=== PATIENT | male | born 1990 | race Two or more races ===

== ENCOUNTER 2017-11-26 06:06 | Emergency (ER) | payer SELFPAY ==
[~2017-11-26] VITALS: Ht 170.2 cm; Wt 68.0 kg
[~2017-11-26 06:06] MED LIST: [UNRECOGNIZED DRUG - OTHER]
[2017-11-26 09:03] LABS: BASOPHILS % 0.4 % (0.0-2.0); EOSINOPHILS % 0.6 % (0.0-5.0); HEMATOCRIT. 38.3 % (42.0-52.0); HEMOGLOBIN. 13.1 g/dL (14.0-18.0); LYMPHOCYTES % 12.8 % (20.0-50.0); MEAN CORPUSCULAR HEMOGLOBIN 30.4 pg (28.0-32.0); MEAN CORPUSCULAR VOLUME 89.4 fL (80.0-94.0); MEAN PLATELET VOLUME 7.7 fl (7.4-10.4); MONOCYTES % 5.9 % (2.0-8.0); NEUTROPHILS % 80.3 % (40.0-76.0); PLATELET 343 x1000/uL (130-400); RED BLOOD CELL COUNT 4.29 mill/uL (4.7-6.1); RED CELL DISTRIBUTION WIDTH 14.4 % (11.6-14.6)
[2017-11-26 09:07] LABS: CHLORIDE 106 mEq/L (98-107)
[2017-11-26 09:12] LABS: ETHANOL BLOOD < 10 mg/dL
[2017-11-26 09:21] LABS: KETONES URINE NEGATIVE (NEGATIVE); LEUKOCYTE ESTERASE URINE NEGATIVE (NEGATIVE); NITRITE URINE NEGATIVE (NEGATIVE); OCCULT BLOOD URINE NEGATIVE (NEGATIVE); PH URINE 7.5 (4.5-8.0); PROTEIN URINE TRACE (NEGATIVE); SPECIFIC GRAVITY URINE 1.018 (1.005-1.030)
[2017-11-26 09:31] LABS: CLARITY URINE CLEAR (CLEAR); COLOR URINE YELLOW (YELLOW)
[2017-11-26 09:39] LABS: CANNABINOID URINE SCREEN PRESUMTIVE POSITIVE (NEGATIVE); OPIATES URINE SCREEN NEGATIVE (NEGATIVE); PHENCYCLIDINE URINE SCREEN NEGATIVE (NEGATIVE)
[2017-11-26 09:40] LABS: *AMPHETAMINES SCREEN URINE PRESUMTIVE POSITIVE (NEGATIVE); *BARBITURATES SCREEN URINE NEGATIVE (NEGATIVE)
[2017-11-26 09:42] LABS: *BENZODIAZEPINES SCREEN URINE NEGATIVE (NEGATIVE); *COCAINE SCREEN URINE NEGATIVE (NEGATIVE); METHADONE URINE SCREEN NEGATIVE (NEGATIVE)
[2017-11-26] MEDS ORDERED: LORAZEPAM 2MG/ML CPJ IM ONE (10:15)
[2017-11-26 11:50] VITALS: BP 154/101
== END 2017-11-26 12:18 | disposition home or self-care (01) ==
LOC: ER 06:06
DX: F19.90 Other psychoactive substance use, unspecified, uncomplicated (principal); F17.200 Nicotine dependence, unspecified, uncomplicated; F12.10 Cannabis abuse, uncomplicated; Z79.899 Other long term (current) drug therapy
CPT/HCPCS: 36415; 80053; 80305; 80307; 80329; 81003; 85025; 99285; G0482; J2060; Z7610

== ENCOUNTER 2019-12-28 19:59 | Emergency (ER) | payer MEDICAID ==
[~2019-12-28] VITALS: Ht 172.7 cm; Wt 82.0 kg
[2019-12-28 20:08] VITALS: BP 148/103
== END 2019-12-28 20:30 | disposition left against medical advice (07) ==
LOC: ER 19:59
DX: Z53.21 Procedure and treatment not carried out due to patient leaving prior to being seen by health care provider (principal)

== ENCOUNTER 2021-06-27 23:26 | Inpatient (IN) | payer MEDICAID ==
[~2021-06-27] VITALS: Ht 170.2 cm; Wt 104.0 kg
[2021-06-27] MEDS ORDERED: LORAZEPAM 2MG/ML CPJ IV ONE (23:45)
[2021-06-27] MEDS ORDERED: ASPIRIN 325MG EC TABLET PO ONE (23:45)
[2021-06-27] MEDS ORDERED: SODIUM CHLORIDE 0.9% 1,000 ML IV ONE (23:45)
[2021-06-27] MEDS ORDERED: NITROGLYCERIN 0.4MG TABLET SL SL PRN (23:45)
[2021-06-28 00:18] LABS: BASOPHILS % 0.7 % (0.0-2.0); EOSINOPHILS % 2.9 % (0.0-5.0); HEMOGLOBIN. 14.6 g/dL (14.0-18.0); LYMPHOCYTES % 21.9 % (20.0-50.0); MEAN CORPUSCULAR HEMOGLOBIN 30.8 pg (28.0-32.0); MEAN CORPUSCULAR VOLUME 90.8 fL (80.0-94.0); MEAN PLATELET VOLUME 8.5 fl (7.4-10.4); MONOCYTES % 8.5 % (2.0-8.0); PLATELET 316 x1000/uL (130-400); RED BLOOD CELL COUNT 4.74 mill/uL (4.7-6.1)
[2021-06-28 00:24] LABS: CHLORIDE 106 mEq/L (98-107)
[2021-06-28 00:28] LABS: ETHANOL BLOOD 150 mg/dL
[2021-06-28 02:40] LABS: PARTIAL THROMBOPLASTIN TIME 26.2 sec (23.4-31.0); PROTHROMBIN TIME 10.8 sec (9.6-11.0)
[2021-06-28 12:32] LABS: *AMPHETAMINES SCREEN URINE PRESUMTIVE POSITIVE (NEGATIVE); CANNABINOID URINE SCREEN PRESUMTIVE POSITIVE (NEGATIVE); METHADONE URINE SCREEN NEGATIVE (NEGATIVE); OPIATES URINE SCREEN NEGATIVE (NEGATIVE); PHENCYCLIDINE URINE SCREEN NEGATIVE (NEGATIVE)
[2021-06-28 12:33] LABS: *BARBITURATES SCREEN URINE NEGATIVE (NEGATIVE); *BENZODIAZEPINES SCREEN URINE NEGATIVE (NEGATIVE); *COCAINE SCREEN URINE NEGATIVE (NEGATIVE)
[2021-06-28 16:00] VITALS: BP 139/98
[2021-06-28] MEDS ORDERED: CLONIDINE 0.1MG TABLET PO PRN (16:00)
[2021-06-28] MEDS ORDERED: ONDANSETRON HCL 4MG/2ML INJ IV PRN (16:00)
[2021-06-28] MEDS ORDERED: HYDROCODONE/ACETAMINOPHEN 5/325MG TABLET PO PRN (16:00)
[2021-06-28] MEDS ORDERED: MAGNESIUM/ALUMINUM HYDROXIDE/SIMETHICONE 30ML UDC PO PRN (16:00)
[2021-06-28] MEDS ORDERED: ACETAMINOPHEN 325MG TABLET PO PRN (16:00)
[2021-06-28 17:22] VITALS: BP 139/98
[2021-06-28 18:00] VITALS: BP 136/87
[2021-06-28 20:00] VITALS: BP 133/82
[2021-06-28] MEDS: ENOXAPARIN 30MG/0.3ML SYR SUBCUT SCH (20:48)
[2021-06-28] MEDS: CHLORDIAZEPOXIDE 25MG CAPSULE PO SCH (20:49)
[2021-06-28 22:00] VITALS: BP 130/77
[2021-06-29] VITALS: BP 130/77
[2021-06-29 02:00] VITALS: BP 130/77
[2021-06-29 04:00] VITALS: BP 145/80
[2021-06-29 06:27] LABS: CHLORIDE 103 mEq/L (98-107)
[2021-06-29] MEDS: CHLORDIAZEPOXIDE 25MG CAPSULE PO SCH ×2 (06:35→13:35)
[2021-06-29 06:38] LABS: LDL CHOLESTEROL 134 mg/dL (5-100); PHOSPHORUS 3.6 mg/dL (2.5-4.9)
[2021-06-29 06:39] LABS: T4 FREE 1.25 ng/dL (0.76-1.46)
[2021-06-29 06:40] LABS: HDL CHOLESTEROL 45 mg/dL (40-59)
[2021-06-29 06:53] LABS: BASOPHILS % 0.5 % (0.0-2.0); EOSINOPHILS % 3.5 % (0.0-5.0); HEMATOCRIT. 37.8 % (42.0-52.0); HEMOGLOBIN. 12.7 g/dL (14.0-18.0); LYMPHOCYTES % 21.4 % (20.0-50.0); MEAN CORPUSCULAR HEMOGLOBIN 30.9 pg (28.0-32.0); MEAN CORPUSCULAR VOLUME 91.7 fL (80.0-94.0); MEAN PLATELET VOLUME 8.9 fl (7.4-10.4); MONOCYTES % 7.4 % (2.0-8.0); NEUTROPHILS % 67.2 % (40.0-76.0); PLATELET 259 x1000/uL (130-400); RED BLOOD CELL COUNT 4.12 mill/uL (4.7-6.1); RED CELL DISTRIBUTION WIDTH 14.8 % (11.6-14.6)
[2021-06-29] MEDS ORDERED: OMEPRAZOLE 20MG CAPSULE EXTENDED RELEASE PO SCH (07:10)
[2021-06-29] MEDS: ENOXAPARIN 30MG/0.3ML SYR SUBCUT SCH (07:45)
[2021-06-29 08:00] VITALS: BP 136/84
[2021-06-29] MEDS ORDERED: MULTIVITAMINS,THER W-MINERALS TABLET PO SCH (09:00)
[2021-06-29] MEDS ORDERED: FOLIC ACID 1MG TABLET PO SCH (09:00)
[2021-06-29 12:00] VITALS: BP 139/91
[2021-06-29 16:00] VITALS: BP 146/84
== END 2021-06-29 19:44 | disposition home or self-care (01) | DRG 816 ==
LOC: ER 23:26 → 8WST 06-28 02:20 → ENRESERV 06-28 14:05
PROVIDERS: ADMIT Internal Medicine; ATTEND Internal Medicine
DX: T40.1X1A Poisoning by heroin, accidental (unintentional), initial encounter (principal); F10.129 Alcohol abuse with intoxication, unspecified; T40.5X1A Poisoning by cocaine, accidental (unintentional), initial encounter; F11.10 Opioid abuse, uncomplicated; F14.10 Cocaine abuse, uncomplicated; F17.200 Nicotine dependence, unspecified, uncomplicated; R74.01 Elevation of levels of liver transaminase levels; Y90.6 Blood alcohol level of 120-199 mg/100 ml; Z20.822 Contact with and (suspected) exposure to COVID-19; F12.10 Cannabis abuse, uncomplicated; F15.10 Other stimulant abuse, uncomplicated; Y92.89 Other specified places as the place of occurrence of the external cause; Z71.41 Alcohol abuse counseling and surveillance of alcoholic; Z71.51 Drug abuse counseling and surveillance of drug abuser
CPT/HCPCS: 36415; 71045; 76700; 80048; 80053; 80061; 80076; 80305; 80320; 83735; 83880; 84100; 84439; 84443; 84484; 85025; 87426; 93005; 93970; 99291; J1650; J2060; J7030; G0480

== ENCOUNTER 2023-09-20 03:45 | Emergency (ER) | payer MEDICAID ==
[~2023-09-20] VITALS: Ht 175.3 cm; Wt 90.0 kg
[2023-09-20 03:51] VITALS: O2SAT 99
[2023-09-20 06:00] VITALS: BP 139/91; PULSE 92; RESP 12; TEMP 97.8
== END 2023-09-20 07:00 | disposition home or self-care (01) ==
LOC: ER 03:59
DX: F10.129 Alcohol abuse with intoxication, unspecified (principal); F15.90 Other stimulant use, unspecified, uncomplicated; F14.90 Cocaine use, unspecified, uncomplicated; F19.90 Other psychoactive substance use, unspecified, uncomplicated
CPT/HCPCS: 99283; Z7610